=== PATIENT | male | born 1970 | race Caucasian/White ===

== ENCOUNTER 2025-05-06 11:21 | Emergency (ER) | payer BC ==
[~2025-05-06] VITALS: Ht 177.8 cm; Wt 80.4 kg
[2025-05-06] MEDS ORDERED: adenosine 3mg/ml 2ml vial IV ONE (11:30)
--- NOTE | 2025-05-06 11:30 | ELECTROCARDIOGRAPH REPORT ---
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
[2025-05-06] MEDS: adenosine 3mg/ml 2ml vial IV ONE ×2 (11:33→11:35)
[2025-05-06] MEDS: normal saline 1000ml 1,000 ML IVB ONE (11:36)
[2025-05-06] MEDS: diltiazem 5mg/ml 5ml inj. IV ONE ×2 (11:42→11:49)
--- NOTE | 2025-05-06 11:43 | Physician Documentation ---
History of Present Illness ~ Chief Complaint: Rapid Heartbeat Stated Complaint: CHEST PAIN Time Seen by MD: 11:37 Source: patient Mode of Arrival: POV Exam Limitations: no limitations HPI Patient has a 1 hour history of palpitations and dizziness. He states he noted his HR went up about an hour ago while at [facility]. He got up and walked around and noted that his HR improved, but then went back in for [facility] and noted that his HR was back up. Associated symptoms of SOB, palpitations, and some dizziness. No sycnope. On presentation HR 180 in SVT. He recently had a similar episode while vacationing, but did not require going to the hospital. His HR improved on its own. Did f/up with PCP, but did not have a current problem with an arrhythmia and therefore, there was no change in treatment. Medication Reconciliation Allergies: Coded Allergies: No Known Allergies (Unverified , 05/06/25) Scheduled Metoprolol Tartrate* (Lopressor tablet*), 1 TAB PO Q12H Past Medical History Past Medical History: No Pertinent History Past Surgical History: no surgical history Review of Systems ROS Review of systems negative except documented in HPI. Physical Exam Vital Signs: RN Vital Signs have been reviewed: Yes, Heart Rate: 188, Respiratory Rate: 24, BP: 157/138, Pulse Oximetry: 98, Weight: 80.400 Pulse Oximetry Reflects: adequate oxygenation Physical Exam General: Awake, alert, oriented. No apparent distress Respiratory: Lungs are clear to auscultation bilaterally. No respiratory distress. Chest: Normal shape and size. No accessory muscle use. Cardiovascular: Regular rate and rhythm. S1-S2. No murmur, gallop, rub. Gastrointestinal: Abdomen is soft. Nontender to palpation. Bowel sounds present. Extremities: No lower extremity edema, cyanosis or clubbing. Neurologic: Alert and oriented x4. Nonfocal Psychiatric: Normal mood and affect. Skin: Normal color. Warm and dry. Progress Progress Note 99825: Converted from SVT to sinus rhythm. There was a sudden appearance of sinus beats followed by two PVCs. Remained sinus tachycardia rate of 113. Results/Orders Results/Orders Orders - ALONSO BLANK NP Stat Ekg (05/06/25 11:46) Completed Orders - ALONSO BLANK NP Diltiazem Iv (Cardizem Iv 5mg/Ml Inj.) (05/06/25 11:40) Diltiazem Iv (Cardizem Iv 5mg/Ml Inj.) (05/06/25 11:40) Normal Saline 1000ml (0.9% Sodium Chlori (05/06/25 12:35) Metoprolol Tartrate Tablet (Lopressor Ta (05/06/25 12:45) MG (05/06/25 13:21) Medications Received in ER Medications (Trade) Dose Ordered Sig/Ivy Route PRN Reason Start Time Stop Time Status Last Admin Dose Admin (Adenocard inj.) 6 mg ONCE ONCE IV 05/06/25 11:30 05/06/25 11:31 DC 05/06/25 11:33 6 MG (Adenocard inj.) 12 mg ONCE ONCE IV 05/06/25 11:30 05/06/25 11:45 DC 05/06/25 11:35 12 MG Sodium Chloride 1,000 ml @ 1,000 mls/hr Q1H ONCE IVB 05/06/25 11:35 05/06/25 12:34 DC 05/06/25 11:36 1,000 MLS/HR (0.9% sodium chloride (NS) 1000ml IV soln) 1,000 ml ONCE ONCE IVB 05/06/25 12:35 05/06/25 12:36 DC 05/06/25 12:48 1,000 ML (Lopressor tablet) 25 mg ONCE ONCE PO 05/06/25 12:45 05/06/25 12:46 DC 05/06/25 12:53 25 MG Vital Signs 05/06/25 05/06/25 05/06/25 05/06/25 11:24 11:30 11:39 11:39 Pulse 188 172 Resp 24 20 17 B/P (MAP) 157/138 157/138 (144) Pulse Ox 98 100 O2 Delivery Nasal Cannula* O2 Flow Rate 2 FiO2 28 05/06/25 05/06/25 05/06/25 05/06/25 11:43 11:43 11:45 11:58 Pulse 180 177 107 104 Resp 16 18 16 11 B/P (MAP) 93/60 (71) 107/75 (86) 118/84 (95) Pulse Ox 100 99 99 O2 Flow Rate 2.0 2.0 2.0 905/06/25 05/06/25 05/06/25 12:48 12:53 13:05 13:35 Pulse 15 110 103 109 Resp 16 16 18 B/P (MAP) 131/85 (100) 117/87 (97) 134/97 (109) Pulse Ox 96 96 96 O2 Flow Rate 0 0 0 05/06/25 14:25 Pulse 84 Resp 16 B/P (MAP) 111/82 (92) Pulse Ox 96 O2 Flow Rate 0 Laboratory Tests Test 05/06/25 11:30 05/06/25 13:44 05/06/25 14:44 White Blood Count 10.6 Red Blood Count 6.11 H Hemoglobin 18.2 *H Hematocrit 54.1 H Mean Corpuscular Volume 88.6 Mean Corpuscular Hemoglobin 29.8 Mean Corpuscular Hemoglobin Concent 33.6 Red Cell Distribution Width 13.6 Platelet Count 289 Mean Platelet Volume 7.2 L Neutrophils (%) (Auto) 60.6 Lymphocytes (%) (Auto) 23.7 Monocytes (%) (Auto) 14.2 H Eosinophils (%) (Auto) 1.0 Basophils (%) (Auto) 0.5 Neutrophils # (Auto) 6.4 Lymphocytes # (Auto) 2.5 Monocytes # (Auto) 1.5 H Eosinophils # (Auto) 0.1 Basophils # (Auto) 0.1 CBC Comment Sodium Level 142 Potassium Level 3.7 Chloride Level 106 Carbon Dioxide Level 25.0 Anion Gap 11 Blood Urea Nitrogen 22 H Creatinine 1.19 H Estimated GFR/1.73 m2 63 BUN/Creatinine Ratio 18.5 Glucose Level 115 H Calcium Level 8.9 Troponin I High Sensitivity 6 52 Pro-B-Type Natriuretic Peptide 122 Albumin 4.0 Chemistry Comments Magnesium Level 1.8 Troponin I High Sens Percent Delta 766 80 Troponin I Hi Sens Absolute Change 46 42 EKG/XRAY/CT/US/VASC/MRI EKG : Indication: abdominal Pain, tachycardia EKG: SVT EKG Blocks: none [place]: LAD Hypertrophy: none Additional Comment Initial EKG 1122 was supraventricular tachycardia rate of 186 Subsequent EKG after spontaneous conversion 1144 sinus tachycardia rate of 102. Left axis deviation. No acute ST changes. Chest X-Ray : Interpreted By: both Views: 1 VIEW Indication: other Lungs: other (Mild pulmonary vascular congestion is noted.) Mediastinum: normal Ribs/Bones: normal Abdomen: normal Impression: no acute disease Additional Comments [facility] [address], [place], [facility] [place] [place] [address] DIAGNOSTIC RADIOLOGY Patient: JOSE MARTIN ZAZUETA Medical Record: [id number] [facility] 1970, Age: 54 Sex: Male Location: ER Patient Status: [facility] ER Service Date/Time: 05/06/25 1140 Ordering Physician: GRACE PHILLIPS MD Exam: CHEST,SINGLE VIEW CHEST RADIOGRAPH Indication: CP Technique: Single frontal view of the chest was obtained Comparison: None FINDINGS: Lines and Tubes: None Lungs: No focal consolidation. Mild pulmonary vascular congestion and interstitial edema. Pleura: No effusion. No pneumothorax. Cardiomediastinal contours: Unremarkable Bones: No acute osseous abnormality. IMPRESSION: 1. Mild pulmonary vascular congestion and interstitial edema. No focal consolidations. Electronically Signed by:MEENU ANDINO MD Date & Time: 05/06/251155 Dictated by: MEENU ANDINO MD Dictation date and time: 05/06/25 115 Primary Care Provider: NO PRIMARY CARE PROVIDER cc: GRACE PHILLIPS MD ~ Medical Decision Making Findings Patient presented with palpitations, shortness for breath, dizziness. Found to be in SVT with rate in 180s. Attempted adenosine with 6 mg followed by 12 mg with no change in heart rate. This did lead me to believe that it may be more of an atrial fibrillation however he spontaneously converted to sinus rhythm. He was monitored and did not convert back remained sinus rhythm. His heart rate was in the 110 range in sinus rhythm and therefore was given metoprolol tartrate. Down to 85. He was found to have a elevated hemoglobin at 18. Was given 2 L IV fluids. He had no EKG changes when in sinus rhythm to suspect ACS. No shortness a breath to suspect pulmonary embolism. Pain inconsistent with a aortic dissection. High sensitivity troponin was negative initially. And despite his significant tachycardia it remained low. Suspect underlying SVT. The case was discussed with the attending physician, Phillips. The plan of care, diagnostic evaluation and medical decision making were discussed. [facility] for [facility], where the diagnostic findings as well as the eventual disposition. Differential Dx:Considerations: Include: angina / AR, atrial dysrhythmia, atrial fibrillation, atrial flutter, MAT, sinus tachycardia, WPW, torsades de pointes, ventricular fibrillation, ventricular tachycardia Differential Dx:Considerations: Include anxiety/panic attack, Include electrolyte disorder, Include heart failure, Include hyperthyroidism, Include hyperventilation, Include pulmonary embolus, Include renal failure Departure Time of Disposition: 14:42 Disposition: 01 HOME / SELF CARE / HOMELESS Impression: Primary Impression: SVT (supraventricular tachycardia) Condition: Stable Discharge Instructions: Supraventricular Tachycardia, Adult Additional Instructions: Please stay well hydrated. Avoid alcohol as this may be a trigger for SVT. Please follow up with your primary care provider. You may follow up with Cardiology as well. You may call Dr. Humphreys's office to schedule. Given that this is the 2nd episode of supraventricular tachycardia you may benefit from antiarrhythmic therapy (medication) versus a supraventricular tachycardia ablation which is a procedure that can be discussed later. I will start you on a medication that lowers the heart rate. This medication is called metoprolol. You may notice that your a little tired when you 1st start taking it. This should improve with time. Please return for new or worsening symptoms. Recommend staying well hydrated. Referrals: NO PRIMARY CARE PROVIDER (PCP) ALFREDO HUMPHREYS MD Prescriptions Metoprolol Tartrate* (Lopressor tablet*) 25 Mg Tablet 1 TAB PO Q12H for 30 Days, #60 TAB Hold for SBP below 100mm Hg Hold for Heart Rate below 60. Prov: ALONSO BLANK NP 05/06/25 Education Educated: Patient Educated regarding: diagnosis, treatment, need for follow up Signature Scribe Signature: No scribe Attestation: The note accurately reflects work and decisions made by me.Alonso Blank - LOBITO 05/06/25 15:57 This note was created with the assistance of voice recognition software whereby errors in grammar, syntax, and/or spelling may have occurred despite active proofreading efforts by the author. Please do not hesitate to contact the provider for clarification or for questions regarding the content of this document. ALONSO BLANK NP May 06, 2025 11:43
[2025-05-06 11:44] LABS: MEAN PLATELET VOLUME 7.2 FL (7.4-10.4); RED CELL DISTRIBUTION WIDTH 13.6 % (11.5-14.5)
--- NOTE | 2025-05-06 11:48 | ELECTROCARDIOGRAPH REPORT ---
[facility] Test Date: 2025-05-06 Test Time: 11:44:46 Pat Name: JOSE MARTIN ZAZUETA Department: [facility] Patient ID: [facility]-[id number] Room: Gender: M [employer]: : 1970 Requested By: GRACE PHILLIPS Order Number: [id number] Reading MD: Measurements Intervals [place] Rate: 102 P: 71 [place]: 173 QRS: -49 QRSD: 86 T: 71 QT: 354 QTc: 462 Interpretive Statements Sinus tachycardia LAD, consider left anterior fascicular block Baseline wander in lead(s) V4 Please click the below link to view image of tracing.
--- NOTE | 2025-05-06 11:59 | RADIOLOGY REPORT ---
CHEST RADIOGRAPH Indication: CP Technique: Single frontal view of the chest was obtained Comparison: None FINDINGS: Lines and Tubes: None Lungs: No focal consolidation. Mild pulmonary vascular congestion and interstitial edema. Pleura: No effusion. No pneumothorax. Cardiomediastinal contours: Unremarkable Bones: No acute osseous abnormality. IMPRESSION: 1. Mild pulmonary vascular congestion and interstitial edema. No focal consolidations.
[2025-05-06 12:03] LABS: CREATININE 1.19 MG/DL (0.60-1.10); PRO BRAIN NATRIURETIC PEPTIDE 122 PG/ML (0-125); TOTAL CARBON DIOXIDE 25.0 MMOL/L (24-32); eCRCL 72 ML/MIN; eGFR 63 ML/MIN
[2025-05-06] MEDS ORDERED: LOP25T PO (12:41)
[2025-05-06] MEDS: normal saline 1000ML IV soln IVB ONE (12:48)
[2025-05-06 14:25] VITALS: BP 111/82; PULSE 84; RESP 16; O2SAT 96
== END 2025-05-06 14:51 | disposition home or self-care (01) ==
LOC: ER 11:22
DX: I47.10 Supraventricular tachycardia, unspecified (principal); Z79.899 Other long term (current) drug therapy
CPT/HCPCS: 36415; 71045; 80048; 83735; 83880; 84484; 85025; 93005; 96361; 96374; 99285; J0153; J7030